=== PATIENT | male | born 1940 | race Caucasian/White ===

== ENCOUNTER 2019-09-02 15:05 | Emergency (ER) | payer MEDICARE, OTHER, SELFPAY ==
[2019-09-02 15:07] VITALS: BP 136/81; PULSE 94; RESP 17; TEMP 36.6; O2SAT 99; BMI 27.1
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
[2019-09-02 15:22] VITALS: O2SAT 100
[2019-09-02 16:27] VITALS: BP 107/69; PULSE 98; O2SAT 99
== END 2019-09-02 16:27 | disposition home or self-care (01) ==
PROVIDERS: Emergency Provider Family Medicine; Family Provider Family Medicine
DX: R09.81 Nasal congestion (principal); E11.9 Type 2 diabetes mellitus without complications
CPT/HCPCS: 12345; 70486; 99281; 99282

== ENCOUNTER 2019-09-17 15:52 | Outpatient (RCR) | payer MEDICARE, OTHER, SELFPAY ==
--- NOTE | 2019-09-17 15:53 | XR_ITS ---
WS: [id number] CHEST, 1 view. HISTORY: PULMONARY EMBOLI? COMPARISON: None available. Lungs are clear and well expanded. No pleural effusion or pneumothorax. Cardiac size: Normal. Mediastinum/Aorta: Ectatic thoracic aorta. No osseous abnormality seen. XR/XR chest 1V [id number] IMPRESSION: Ectatic thoracic aorta. Otherwise negative.
--- NOTE | 2019-09-17 16:10 | ECG_ITS ---
Measurements Intervals [place] Rate: 81 P: 39 IL: 149 QRS: 42 QRSD: 86 T: 27 QT: 349 QTc: 407 SINUS RHYTHM WITH OCCASIONAL VENTRICULAR PREMATURE COMPLEXES POSSIBLE INFERIOR MYOCARDIAL INFARCTION [30 ms Q WAVE IN II/aVF], PROBABLY OLD Compared to ECG 02/15/2019 16:32:58 Ventricular premature complex(es) now present Myocardial infarct finding still present Electronically Signed On 09-17-2019 18:30:07 CDT by Nena Gould M.D. [email or web address]
== END 2019-09-18 23:59 | disposition home or self-care (01) ==
LOC: WOUND 15:52
PROVIDERS: Family Provider Family Medicine; Visit Provider Nurse Practitioner Family
DX: E11.621 Type 2 diabetes mellitus with foot ulcer (principal); L97.422 Non-pressure chronic ulcer of left heel and midfoot with fat layer exposed; I77.810 Thoracic aortic ectasia; I49.3 Ventricular premature depolarization; Z13.83 Encounter for screening for respiratory disorder NEC; Z13.6 Encounter for screening for cardiovascular disorders
CPT/HCPCS: 11042; 71045; 93005; G0463; L4387

== ENCOUNTER 2019-09-21 07:58 | Outpatient (CLI) | payer MEDICARE, OTHER, SELFPAY ==
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
== END 2019-09-21 07:59 | disposition home or self-care (01) ==
PROVIDERS: Family Provider Family Medicine; Visit Provider Nurse Practitioner Family
DX: L98.499 Non-pressure chronic ulcer of skin of other sites with unspecified severity (principal); I82.452 Acute embolism and thrombosis of left peroneal vein
CPT/HCPCS: 93971

== ENCOUNTER 2019-09-24 13:16 | Outpatient (CLI) | payer MEDICARE, OTHER, SELFPAY | END 2019-10-18 23:59 | disposition home or self-care (01) | PROVIDERS: Family Provider Family Medicine; PCP Family Medicine; Visit Provider Nurse Practitioner Family | DX: E11.622 Type 2 diabetes mellitus with other skin ulcer (principal); L97.322 Non-pressure chronic ulcer of left ankle with fat layer exposed | CPT/HCPCS: 15271; 87070; 87077; 87186; 87205; Q4110 ==

== ENCOUNTER 2019-10-19 13:18 | Outpatient (CLI) | payer MEDICARE, OTHER, SELFPAY | END 2019-10-19 13:19 | disposition home or self-care (01) | LOC: WOUND 10-22 13:33 | PROVIDERS: Family Provider Family Medicine; PCP Family Medicine; Visit Provider Surgery | DX: M76.62 Achilles tendinitis, left leg (principal); E11.621 Type 2 diabetes mellitus with foot ulcer; L97.422 Non-pressure chronic ulcer of left heel and midfoot with fat layer exposed | CPT/HCPCS: G0277 ==

== ENCOUNTER 2019-10-22 13:14 | Outpatient (CLI) | payer MEDICARE, OTHER, SELFPAY | END 2019-10-22 13:15 | disposition home or self-care (01) | LOC: WOUND 13:16 | PROVIDERS: Family Provider Family Medicine; PCP Family Medicine; Visit Provider Emergency Medicine | DX: E11.622 Type 2 diabetes mellitus with other skin ulcer (principal); L97.322 Non-pressure chronic ulcer of left ankle with fat layer exposed; M76.62 Achilles tendinitis, left leg; L97.906 Non-pressure chronic ulcer of unspecified part of unspecified lower leg with bone involvement without evidence of necrosis | CPT/HCPCS: G0277 ==

== ENCOUNTER 2019-10-23 13:06 | Outpatient (CLI) | payer MEDICARE, OTHER, SELFPAY | END 2019-10-23 13:07 | disposition home or self-care (01) | LOC: WOUND 13:07 | PROVIDERS: Family Provider Family Medicine; PCP Family Medicine; Visit Provider Thoracic Surgery (Cardiothoracic Vascular Surgery) | DX: E11.622 Type 2 diabetes mellitus with other skin ulcer (principal); L97.906 Non-pressure chronic ulcer of unspecified part of unspecified lower leg with bone involvement without evidence of necrosis; A49.02 Methicillin resistant Staphylococcus aureus infection, unspecified site | CPT/HCPCS: G0277 ==

== ENCOUNTER 2019-10-24 13:25 | Outpatient (CLI) | payer MEDICARE, OTHER, SELFPAY | END 2019-10-24 13:26 | disposition home or self-care (01) | LOC: WOUND 13:25 | PROVIDERS: Family Provider Family Medicine; PCP Family Medicine; Visit Provider Nurse Practitioner Family | DX: E11.621 Type 2 diabetes mellitus with foot ulcer (principal); L97.906 Non-pressure chronic ulcer of unspecified part of unspecified lower leg with bone involvement without evidence of necrosis | CPT/HCPCS: G0277 ==

== ENCOUNTER 2019-10-25 13:22 | Outpatient (CLI) | payer MEDICARE, OTHER, SELFPAY | END 2019-10-25 13:23 | disposition home or self-care (01) | LOC: WOUND 13:22 | PROVIDERS: Family Provider Family Medicine; PCP Family Medicine; Visit Provider Nurse Practitioner Family | DX: E11.622 Type 2 diabetes mellitus with other skin ulcer (principal); L97.326 Non-pressure chronic ulcer of left ankle with bone involvement without evidence of necrosis | CPT/HCPCS: G0277 ==

== ENCOUNTER 2019-10-26 13:12 | Outpatient (CLI) | payer MEDICARE, OTHER, SELFPAY | END 2019-10-26 13:13 | disposition home or self-care (01) | LOC: WOUND 13:13 | PROVIDERS: Family Provider Family Medicine; PCP Family Medicine; Visit Provider Surgery | DX: E11.622 Type 2 diabetes mellitus with other skin ulcer (principal); L97.328 Non-pressure chronic ulcer of left ankle with other specified severity | CPT/HCPCS: G0277 ==

== ENCOUNTER 2019-10-29 11:39 | Outpatient (CLI) | payer MEDICARE, OTHER, SELFPAY | END 2019-10-29 11:40 | disposition home or self-care (01) | LOC: WOUND 11:40 | PROVIDERS: Family Provider Family Medicine; PCP Family Medicine; Visit Provider Nurse Practitioner Family | DX: E11.622 Type 2 diabetes mellitus with other skin ulcer (principal); L97.325 Non-pressure chronic ulcer of left ankle with muscle involvement without evidence of necrosis | CPT/HCPCS: G0277; G0463 ==

== ENCOUNTER 2019-10-30 13:10 | Outpatient (CLI) | payer MEDICARE, OTHER, SELFPAY | END 2019-10-30 13:11 | disposition home or self-care (01) | LOC: WOUND 13:11 | PROVIDERS: Family Provider Family Medicine; PCP Family Medicine; Visit Provider Thoracic Surgery (Cardiothoracic Vascular Surgery) | DX: E11.622 Type 2 diabetes mellitus with other skin ulcer (principal); L97.328 Non-pressure chronic ulcer of left ankle with other specified severity | CPT/HCPCS: G0277 ==

== ENCOUNTER 2019-10-31 13:13 | Outpatient (CLI) | payer MEDICARE, OTHER, SELFPAY | END 2019-10-31 13:14 | disposition home or self-care (01) | LOC: WOUND 13:14 | PROVIDERS: Family Provider Family Medicine; PCP Family Medicine; Visit Provider Nurse Practitioner Family | DX: E11.622 Type 2 diabetes mellitus with other skin ulcer (principal); L97.328 Non-pressure chronic ulcer of left ankle with other specified severity | CPT/HCPCS: G0277 ==

== ENCOUNTER 2019-11-01 13:23 | Outpatient (CLI) | payer MEDICARE, OTHER, SELFPAY | END 2019-11-01 13:24 | disposition home or self-care (01) | LOC: WOUND 13:24 | PROVIDERS: Family Provider Family Medicine; PCP Family Medicine; Visit Provider Nurse Practitioner Family | DX: E11.622 Type 2 diabetes mellitus with other skin ulcer (principal); L97.326 Non-pressure chronic ulcer of left ankle with bone involvement without evidence of necrosis | CPT/HCPCS: G0277 ==

== ENCOUNTER 2019-11-02 13:11 | Outpatient (CLI) | payer MEDICARE, OTHER, SELFPAY | END 2019-11-02 13:12 | disposition home or self-care (01) | LOC: WOUND 13:12 | PROVIDERS: Family Provider Family Medicine; PCP Family Medicine; Visit Provider Surgery | DX: E11.622 Type 2 diabetes mellitus with other skin ulcer (principal); L97.328 Non-pressure chronic ulcer of left ankle with other specified severity | CPT/HCPCS: G0277 ==

== ENCOUNTER 2019-11-05 13:07 | Outpatient (CLI) | payer MEDICARE, OTHER, SELFPAY | END 2019-11-05 13:08 | disposition home or self-care (01) | LOC: WOUND 13:08 | PROVIDERS: Family Provider Family Medicine; PCP Family Medicine; Visit Provider Nurse Practitioner Family | DX: E11.622 Type 2 diabetes mellitus with other skin ulcer (principal); L97.322 Non-pressure chronic ulcer of left ankle with fat layer exposed | CPT/HCPCS: G0277; G0463 ==

== ENCOUNTER 2019-11-06 13:20 | Outpatient (CLI) | payer MEDICARE, OTHER, SELFPAY | END 2019-11-06 13:21 | disposition home or self-care (01) | LOC: WOUND 13:21 | PROVIDERS: Family Provider Family Medicine; PCP Family Medicine; Visit Provider Thoracic Surgery (Cardiothoracic Vascular Surgery) | DX: E11.622 Type 2 diabetes mellitus with other skin ulcer (principal); L97.328 Non-pressure chronic ulcer of left ankle with other specified severity | CPT/HCPCS: 99183 ==

== ENCOUNTER 2019-11-07 13:13 | Outpatient (CLI) | payer MEDICARE, OTHER, SELFPAY | END 2019-11-07 13:14 | disposition home or self-care (01) | LOC: WOUND 13:13 | PROVIDERS: Family Provider Family Medicine; PCP Family Medicine; Visit Provider Nurse Practitioner Family | DX: E11.622 Type 2 diabetes mellitus with other skin ulcer (principal); L97.329 Non-pressure chronic ulcer of left ankle with unspecified severity; A49.02 Methicillin resistant Staphylococcus aureus infection, unspecified site | CPT/HCPCS: G0277 ==

== ENCOUNTER 2019-11-08 13:02 | Outpatient (CLI) | payer MEDICARE, OTHER, SELFPAY | END 2019-11-08 13:03 | disposition home or self-care (01) | LOC: WOUND 13:02 | PROVIDERS: Family Provider Family Medicine; PCP Family Medicine; Visit Provider Nurse Practitioner Family | DX: E11.622 Type 2 diabetes mellitus with other skin ulcer (principal); L97.326 Non-pressure chronic ulcer of left ankle with bone involvement without evidence of necrosis | CPT/HCPCS: G0277 ==

== ENCOUNTER 2019-11-09 13:03 | Outpatient (CLI) | payer MEDICARE, OTHER, SELFPAY | END 2019-11-09 13:04 | disposition home or self-care (01) | LOC: WOUND 13:04 | PROVIDERS: Family Provider Family Medicine; PCP Family Medicine; Visit Provider Surgery | DX: E11.622 Type 2 diabetes mellitus with other skin ulcer (principal); L97.328 Non-pressure chronic ulcer of left ankle with other specified severity | CPT/HCPCS: G0277 ==

== ENCOUNTER 2019-11-13 11:30 | Outpatient (CLI) | payer MEDICARE, OTHER, SELFPAY ==
--- NOTE | 2019-11-13 11:37 | USCV_ITS ---
Honorio Littlejohn Age: 79 Gender: M : 1940 Exam Date: 11/13/2019 11:39 Ordering Phys: Veronica Krueger Technologist: Kashif Pickard Exam Location: [facility] – [place] Indication: HISTORY: NON HEALING ULCERS PROCEDURES: Left duplex Venous Insufficiency study of the Deep and Superficial systems was carried out according to normal protocol with the patient in supine positon for deep system and dependent position for the superficial system. FINDINGS: There is no evidence of LEFT deep vein thrombosis. No evidence of superficial thrombosis in the LEFT saphenous system. No evidence of reflux was noted in the LEFT deep venous system. No venous reflux noted in the LEFT small saphenous vein. The veins were found to be easily compressible with spontaneous blood flow. Non pulsatile flow pattern. CONCLUSIONS No evidence of DVT in the above-mentioned identifiable veins on the left side. No significant venous reflux The venous dimensions and depth from the surface are as mentioned above Dr Helen Alcala MD [facility] (Electronically Signed) Final Date: 13 Nov 2019 13:59 S
== END 2019-11-13 11:31 | disposition home or self-care (01) ==
LOC: RAD 11:35
PROVIDERS: PCP Family Medicine; Visit Provider Nurse Practitioner Family
DX: L98.499 Non-pressure chronic ulcer of skin of other sites with unspecified severity (principal); M79.662 Pain in left lower leg
CPT/HCPCS: 93971

== ENCOUNTER 2019-11-13 13:26 | Outpatient (CLI) | payer MEDICARE, OTHER, SELFPAY | END 2019-11-13 13:27 | disposition home or self-care (01) | LOC: WOUND 13:26 | PROVIDERS: PCP Family Medicine; Visit Provider Thoracic Surgery (Cardiothoracic Vascular Surgery) | DX: E11.622 Type 2 diabetes mellitus with other skin ulcer (principal); L97.328 Non-pressure chronic ulcer of left ankle with other specified severity; L97.909 Non-pressure chronic ulcer of unspecified part of unspecified lower leg with unspecified severity; L97.323 Non-pressure chronic ulcer of left ankle with necrosis of muscle; M67.972 Unspecified disorder of synovium and tendon, left ankle and foot | CPT/HCPCS: 99183; G0277 ==

== ENCOUNTER 2019-11-14 09:14 | Outpatient (CLI) | payer MEDICARE, OTHER, SELFPAY ==
--- NOTE | 2019-11-14 09:21 | USCV_ITS ---
Annetta Honorio Age: 79 Gender: M : 1940 Exam Date: 11/14/2019 09:35 Ordering Phys: Veronica Krueger Technologist: Exam [place] [facility] [place] Indication: NON HEALING ULCER RIGHT LEFT Brachial 131.00 mmHg Brachial 134.00 mmHg Pressure (mmHg) Waveform Pressure (mmHg) Waveform Above Knee 161.00 Below Knee 181.00 [employer] MECH[employer]IC 145.00 DPA 187.00 Ankle/Brachial Index 1.40 Pre-Exercise Toe Pressure 158.00 Pre-Exercise Toe/Brachial Index 1.18 FINDINGS Normal resting EZRA and TBI on the left side. Possibly normal PVR waveforms. CONCLUSIONS No significant arterial obstruction, based on the above findings Dr Helen Alcala MD [facility] (Electronically Signed) Final Date: 14 Nov 2019 19:07 S
== END 2019-11-14 09:15 | disposition home or self-care (01) ==
LOC: RAD 09:18
PROVIDERS: PCP Family Medicine; Visit Provider Nurse Practitioner Family
DX: L97.909 Non-pressure chronic ulcer of unspecified part of unspecified lower leg with unspecified severity (principal)
CPT/HCPCS: 93922

== ENCOUNTER 2019-11-14 13:17 | Outpatient (CLI) | payer MEDICARE, OTHER, SELFPAY | END 2019-11-14 13:18 | disposition home or self-care (01) | PROVIDERS: PCP Family Medicine; Visit Provider Nurse Practitioner Family | DX: E11.622 Type 2 diabetes mellitus with other skin ulcer (principal); L97.323 Non-pressure chronic ulcer of left ankle with necrosis of muscle; M67.972 Unspecified disorder of synovium and tendon, left ankle and foot | CPT/HCPCS: 11042; 93922; G0277 ==

== ENCOUNTER 2019-11-15 13:07 | Outpatient (CLI) | payer MEDICARE, OTHER, SELFPAY | END 2019-11-15 13:08 | disposition home or self-care (01) | LOC: WOUND 13:08 | PROVIDERS: PCP Family Medicine; Visit Provider Nurse Practitioner Family | DX: E11.622 Type 2 diabetes mellitus with other skin ulcer (principal); L97.326 Non-pressure chronic ulcer of left ankle with bone involvement without evidence of necrosis | CPT/HCPCS: G0277 ==

== ENCOUNTER 2019-11-16 13:03 | Outpatient (CLI) | payer MEDICARE, OTHER, SELFPAY | END 2019-11-16 13:04 | disposition home or self-care (01) | LOC: WOUND 13:04 | PROVIDERS: PCP Family Medicine; Visit Provider Surgery | DX: E11.621 Type 2 diabetes mellitus with foot ulcer (principal); L97.328 Non-pressure chronic ulcer of left ankle with other specified severity | CPT/HCPCS: G0277 ==

== ENCOUNTER 2019-11-19 13:02 | Outpatient (CLI) | payer MEDICARE, OTHER, SELFPAY | END 2019-11-19 13:03 | disposition home or self-care (01) | LOC: WOUND 13:02 | PROVIDERS: PCP Family Medicine; Visit Provider Nurse Practitioner Family | DX: E11.622 Type 2 diabetes mellitus with other skin ulcer (principal); L97.325 Non-pressure chronic ulcer of left ankle with muscle involvement without evidence of necrosis | CPT/HCPCS: 11042; G0277 ==

== ENCOUNTER 2019-11-20 12:54 | Outpatient (CLI) | payer MEDICARE, OTHER, SELFPAY | END 2019-11-20 12:55 | disposition home or self-care (01) | LOC: WOUND 12:55 | PROVIDERS: PCP Family Medicine; Visit Provider Thoracic Surgery (Cardiothoracic Vascular Surgery) | DX: E11.622 Type 2 diabetes mellitus with other skin ulcer (principal); L97.328 Non-pressure chronic ulcer of left ankle with other specified severity | CPT/HCPCS: G0277 ==

== ENCOUNTER 2019-11-21 13:19 | Outpatient (CLI) | payer MEDICARE, OTHER, SELFPAY | END 2019-11-21 13:20 | disposition home or self-care (01) | LOC: WOUND 13:19 | PROVIDERS: PCP Family Medicine; Visit Provider Thoracic Surgery (Cardiothoracic Vascular Surgery) | DX: E11.622 Type 2 diabetes mellitus with other skin ulcer (principal); L97.328 Non-pressure chronic ulcer of left ankle with other specified severity | CPT/HCPCS: G0277 ==

== ENCOUNTER 2019-11-22 13:06 | Outpatient (CLI) | payer MEDICARE, OTHER, SELFPAY | END 2019-11-22 13:07 | disposition home or self-care (01) | LOC: WOUND 13:06 | PROVIDERS: PCP Family Medicine; Visit Provider Nurse Practitioner Family | DX: E11.622 Type 2 diabetes mellitus with other skin ulcer (principal); L97.325 Non-pressure chronic ulcer of left ankle with muscle involvement without evidence of necrosis | CPT/HCPCS: G0277 ==

== ENCOUNTER 2019-11-23 12:55 | Outpatient (CLI) | payer MEDICARE, OTHER, SELFPAY | END 2019-11-23 12:56 | disposition home or self-care (01) | LOC: WOUND 12:56 | PROVIDERS: PCP Family Medicine; Visit Provider Surgery | DX: E11.622 Type 2 diabetes mellitus with other skin ulcer (principal); L97.328 Non-pressure chronic ulcer of left ankle with other specified severity | CPT/HCPCS: G0277 ==

== ENCOUNTER 2019-11-26 13:04 | Outpatient (CLI) | payer MEDICARE, OTHER, SELFPAY | END 2019-11-26 13:05 | disposition home or self-care (01) | LOC: WOUND 11-28 10:53 | PROVIDERS: PCP Family Medicine; Visit Provider Nurse Practitioner Family | DX: E11.622 Type 2 diabetes mellitus with other skin ulcer (principal); L97.322 Non-pressure chronic ulcer of left ankle with fat layer exposed | CPT/HCPCS: 11042; 99183; G0277 ==

== ENCOUNTER 2019-12-03 14:13 | Outpatient (CLI) | payer MEDICARE, OTHER, SELFPAY | END 2019-12-03 14:14 | disposition home or self-care (01) | LOC: WOUND 14:14 | PROVIDERS: Visit Provider Nurse Practitioner Family | DX: E11.622 Type 2 diabetes mellitus with other skin ulcer (principal); L97.322 Non-pressure chronic ulcer of left ankle with fat layer exposed | CPT/HCPCS: 11042; L4387 ==

== ENCOUNTER 2019-12-10 13:55 | Outpatient (CLI) | payer MEDICARE, OTHER, SELFPAY | END 2019-12-10 13:56 | disposition home or self-care (01) | LOC: WOUND 14:05 | PROVIDERS: Visit Provider Nurse Practitioner Family | DX: E11.622 Type 2 diabetes mellitus with other skin ulcer (principal); L97.322 Non-pressure chronic ulcer of left ankle with fat layer exposed | CPT/HCPCS: 11042 ==

== ENCOUNTER 2019-12-17 14:02 | Outpatient (CLI) | payer MEDICARE, OTHER, SELFPAY | END 2019-12-17 14:03 | disposition home or self-care (01) | LOC: WOUND 14:03 | PROVIDERS: Visit Provider Nurse Practitioner Family | DX: E11.621 Type 2 diabetes mellitus with foot ulcer (principal); L97.322 Non-pressure chronic ulcer of left ankle with fat layer exposed | CPT/HCPCS: 11042; 15271; Q4137 ==

== ENCOUNTER 2019-12-20 11:13 | Outpatient (CLI) | payer MEDICARE, OTHER, SELFPAY | END 2019-12-20 11:14 | disposition home or self-care (01) | LOC: WOUND 11:14 | PROVIDERS: Visit Provider Nurse Practitioner Family | DX: E11.622 Type 2 diabetes mellitus with other skin ulcer (principal); L97.822 Non-pressure chronic ulcer of other part of left lower leg with fat layer exposed; M67.874 Other specified disorders of tendon, left ankle and foot | CPT/HCPCS: 29581 ==

== ENCOUNTER 2019-12-26 08:32 | Outpatient (CLI) | payer MEDICARE, OTHER, SELFPAY | END 2019-12-26 08:33 | disposition home or self-care (01) | LOC: WOUND 08:32 | PROVIDERS: Visit Provider Thoracic Surgery (Cardiothoracic Vascular Surgery) | DX: Z09 Encounter for follow-up examination after completed treatment for conditions other than malignant neoplasm (principal) | CPT/HCPCS: 99212; A6530 ==